=== PATIENT | female | born 1985 | race Caucasian/White ===

== ENCOUNTER 2024-04-06 07:01 | Observation (INO) ==
[2024-04-06 07:15] VITALS: BMI 21.9
--- NOTE | 2024-04-06 07:21 | DR.NAUSEAF ---
HPI Time Seen Time Seen by Provider: 04/06/24 07:20 Primary Care Physician Primary Care Physician: NFD Complaints Chief Complaint Doctors Comments: Patient states that she began to have nausea and vomiting 2 days ago. Patient states that she has not had multiple episodes of emesis like this since she was with her 2 children. Patient also c/o generalized abdl pain. Patient has a h/o seizure disorder. She stopped taking her seizure medication 4 yrs ago and has not had any seizures in 2 yrs. Patient denies: fever, hematemesis, hematochezia, headache, dizziness. Chief Complaint:: Patient states that she has been throwing up since yesterday afternoon. She also states that her right arm is tingling. She states that she has seizures, so she is concerned that the throwing up may lead to another one. COVID-19 Coronavirus risk:travel/contact w/high risk person: No Has patient experienced Coronavirus symptoms: No Source History Provided: Patient Mode of Arrival Mode of Arrival: Wheelchair Timing Onset of Chief Complaint: 04/05/24 PMH PMH Past Medical History: Yes Past Medical History: Seizures Past Surgical History: Yes Surgical History: Family History History of Family Medical Conditions: Yes Family Medical History: Diabetes Mellitus, Cancer, [place], Coronary Artery Disease and Hypertension Social History Does patient currently use any type of tobacco product: Yes Have you used tobacco products in the last 12 months: Yes Type of Tobacco Use: Cigarettes Does any household member use tobacco: Yes Alcohol Use: None Do you use any recreational Drugs:: No Travel Risk Coronavirus risk:travel/contact w/high risk person: No Has patient experienced Coronavirus symptoms: No Infectious screening In the last 2 months have you had wt loss of >10#?: NO Have you had fever, night sweats or hemotysis?: No Have you traveled outside the country in the last 6 months?: No Isolation: Standard ROS Review of Systems Constitutional: No Symptoms Reported Eyes: No Symptoms Reported ENTM: No Symptoms Reported Respiratoy: No Symptoms Reported Cardiovascular: No Symptoms Reported Gastrointestinal/Abdominal: Abdominal Pain (generalized), Nausea, Vomiting and Food Intolerance; negative Diarrhea Genitourinary: No Symptoms Reported Neurological: No Symptoms Reported Musculoskeletal: No Symptoms Reported Integumentary: No Symptoms Reported Hematologic/Lymphatic: No Symptoms Reported Endocrine: No Symptoms Reported Psychiatric: No Symptoms Reported All Other Systems: Reviewed and Negative PE Vital Signs Vitals: Vital Signs Temperature 97.7 F Pulse Rate 65 Pulse Rate 101 Respiratory Rate 26 Respiratory Rate 18 Blood Pressure 110/70 Blood Pressure 104/62 Blood Pressure 116/66 O2 Sat by Pulse Oximetry 99 General Limitations: No Limitations General Appearance: Alert and In No Apparent Distress Head Head Exam: Normal Inspection Eyes Eye exam: Normal Appearance ENT ENT Exam: Normal Exam Neck Neck Exam: Normal Inspection Chest Chest Inspection: Normal Inspection Respiratory Respiratory Exam: Normal Lung Sounds Bilat Respiratory Exam: Bilateral: Clear to Auscultation Cardiovascular Cardiovascular Exam: Regular Rate and Normal Rhythm Abdominal Exam Abdominal Exam: Normal Bowel Sounds, Soft and Tenderness Abdominal Tenderness: Diffuse Rectal Rectal Exam: Deferred External Exam: Female: Deferred : Speculum Exam (Female): Deferred : Bimanual Exam (female): Deferred Extremities Extremities Exam: Normal Inspection Back Back Exam: Normal Inspection Neurologic Neurological Exam: Alert and Oriented X3 Psychiatric Psychiatric Exam: Normal Affect and Normal Mood Skin Skin Exam: Warm, Dry, Intact and Normal Color MDM Differential Diagnosis Differential Diagnosis: Considerations may Include:: Cholecystitis, Gastritis, Gastroenteritis, Inflammatory BD and Pancreatitis COURSE Treatment Treatment: Patient was brought to an exam room and iv access was initiated. Labs /tests have been ordered. Patient will be given: NS bolus 1L bolus iv,pepcid , reglan 10mg iv, Keppra 1500mg iv loading dose.Abd/pelvis CT w/ contrast has been ordered. Signed out to Dr Grayson for further evaluation and disposition. Patient's abd/pelvis Ct revealed cholelithiasis.She was d/c with hydrocodone for abdl pain and keppra. ROR Labs Reviewed 04/07/24 04:30 04/07/24 04:30 Laboratory: WBC 12.0 X10^3/uL (3.6-10.0) H 04/06/24 07:53 RBC 4.37 X10^6/uL (3.5-5.4) 04/06/24 07:53 Hgb 13.2 g/dL (12.0-16.0) 04/06/24 07:53 Hct 39.9 % (36.0-47.0) 04/06/24 07:53 MCV 91.4 fL (80.0-100.0) 04/06/24 07:53 MCH 30.3 pg (27.0-34.0) 04/06/24 07:53 MCHC 33.1 g/dL (33.0-35.0) 04/06/24 07:53 RDW 14.4 % (11.6-16.5) 04/06/24 07:53 Plt Count 247 X10^3/uL (150.0-450.0) 04/06/24 07:53 MPV 9.4 fL (7.4-11.0) 04/06/24 07:53 Neut % (Auto) 76.4 % (42.0-75.0) H 04/06/24 07:53 Lymph % (Auto) 14.3 % (21.0-51.0) L 04/06/24 07:53 [place] % (Auto) 8.3 % (0.0-13.0) 04/06/24 07:53 Eos % (Auto) 0.5 % (0.9-2.9) L 04/06/24 07:53 Baso % (Auto) 0.5 % (0.2-1.0) 04/06/24 07:53 Neut # (Auto) 9.2 x10^3/uL (2.2-4.8) H 04/06/24 07:53 Lymph # (Auto) 1.7 X10^3/uL (1.3-2.9) 04/06/24 07:53 [place] # (Auto) 1.0 x10^3/uL (0.3-0.8) H 04/06/24 07:53 Eos # (Auto) 0.1 x10^3/uL (0.0-0.2) 04/06/24 07:53 Baso # (Auto) 0.1 X10^3/uL (0.0-0.1) 04/06/24 07:53 Absolute Nucleated RBC 0.0 /100WBC 04/06/24 07:53 Sodium 140 mmol/L (136-145) 04/06/24 07:53 Corrected Sodium TNP 04/06/24 07:53 Potassium 3.3 mmol/L (3.5-5.1) L 04/06/24 07:53 Chloride 98 mmol/L (98-107) 04/06/24 07:53 Carbon Dioxide 22.0 mmol/L (21-32) 04/06/24 07:53 BUN 27 mg/dL (7-18) H 04/06/24 07:53 Creatinine 0.71 mg/dL (0.55-1.02) 04/06/24 07:53 Est GFR (MDRD) Af Amer > 60 (>60) 04/06/24 07:53 Est GFR (MDRD) Non-Af > 60 (>60) 04/06/24 07:53 Glucose 67 mg/dL (65-99) 04/06/24 07:53 Calcium 9.6 mg/dL (8.5-10.1) 04/06/24 07:53 Corrected Calcium TNP 04/06/24 07:53 Total Bilirubin 1.00 mg/dL (0.2-1.0) 04/06/24 07:53 AST 15 Units/L (15-37) 04/06/24 07:53 ALT 19 Units/L (12-78) 04/06/24 07:53 Alkaline Phosphatase 94 Units/L (46-116) 04/06/24 07:53 Total Protein 8.2 g/dL (6.4-8.2) 04/06/24 07:53 Albumin 4.6 g/dL (3.4-5.0) 04/06/24 07:53 Globulin 3.6 g/dL (2.5-4.5) 04/06/24 07:53 Albumin/Globulin Ratio 1.3 Ratio (1.1-2.1) 04/06/24 07:53 Amylase 35 Units/L (25-115) 04/06/24 07:53 Lipase 16 Units/L (16-77) 04/06/24 07:53 HCG, Qual Negative <10 mIU/mL 04/06/24 07:50 Specimen Type Clean catch urine 04/06/24 08:50 Urine Color Yellow (YELLOW) 04/06/24 08:50 Urine Appearance Slightly hazy (CLEAR) 04/06/24 08:50 Urine pH 6.0 (5.0 - 8.0) 04/06/24 08:50 Ur Specific [place] 1.025 (1.000-1.030) 04/06/24 08:50 Urine Protein 2+ (NEGATIVE) 04/06/24 08:50 Urine Glucose (UA) Negative (NEGATIVE) 04/06/24 08:50 Urine Ketones 4+ (NEGATIVE) 04/06/24 08:50 Urine Blood Negative (NEGATIVE) 04/06/24 08:50 Urine Nitrite Negative (NEGATIVE) 04/06/24 08:50 Urine Bilirubin Negative (NEGATIVE) 04/06/24 08:50 Urine Urobilinogen Normal (NORMAL) 04/06/24 08:50 Ur Leukocyte Esterase Negative (NEGATIVE) 04/06/24 08:50 Urine RBC 0-2 /HPF (0-3) 04/06/24 08:50 Urine WBC 3-5 /HPF (0-5) 04/06/24 08:50 Ur Squamous Epith Cells Moderate /HPF (NEGATIVE) 04/06/24 08:50 Urine Bacteria Trace /HPF (NEGATIVE) 04/06/24 08:50 Hyaline Casts Few /LPF (NEGATIVE) 04/06/24 08:50 Urine Mucus Few /HPF (NEGATIVE) 04/06/24 08:50 Ur Culture Indicated? No/not indicated 04/06/24 08:50 Levetiracetam < 2 ug/mL (10-40) L 04/06/24 07:50 EKG Compared to prior EKG Dated: 04/06/24 Rate: 47 [place]: Normal Rhythm: SB Opioid Opioid Risk Tool Age (Rober box if 16-45): Yes History of Preadolescent Sexual Abuse: No Total: 1 Total Score Risk Category: Low Risk Copyright: Abad HICKS predicting aberrant behaviors Discharge Plan Diagnosis Discharge Problem: Seizure disorder, Abdominal pain, Cholelithiasis, Nausea & vomiting Discharge Plan Patient Disposition: ADMITTED INPATIENT Condition: Stable Prescription drug monitoring program results: PDMP reviewed and no concerns i dentified Orders to Discharge Patient Discharge Orders: Discharge (Routine); Ordered 04/08/24 Ordered By: Homero Galvan
[2024-04-06] MEDS: REGLAN INJ 10 MG VIAL IVP ONE (07:44)
[2024-04-06] MEDS: PEPCID 20 MG VIAL IVP ONE (07:44)
[2024-04-06] MEDS: KEPPRA INJ 1,500 MG in NS 100 ML IV 100 ML IV SCH (07:45)
[2024-04-06] MEDS: NS 1,000 ML IV 1,000 ML IV ONE (07:45)
--- NOTE | 2024-04-06 08:00 | EKG ---
Test Reason : weakness Blood Pressure : */* mmHG Vent. Rate : 47 BPM Atrial Rate : 47 BPM P-R Int : 126 ms QRS Dur : 92 ms QT Int : 500 ms P-R-T Axes : 77 73 64 degrees QTc Int : 442 ms Sinus bradycardia Otherwise normal ECG No previous ECGs available Confirmed by London Coates MD ([id number]) on 04/06/2024 11:43:29 AM Referred By: Confirmed By: London Coates MD
[2024-04-06 08:02] LABS: BASOPHILS # (AUTO) 0.1 X10^3/uL (0.0-0.1); BASOPHILS % (AUTO) 0.5 % (0.2-1.0); EOSINOPHILS # (AUTO) 0.1 x10^3/uL (0.0-0.2); EOSINOPHILS % (AUTO) 0.5 % (0.9-2.9); HEMATOCRIT 39.9 % (36.0-47.0); HEMOGLOBIN 13.2 g/dL (12.0-16.0); LYMPHOCYTES # (AUTO) 1.7 X10^3/uL (1.3-2.9); LYMPHOCYTES % (AUTO) 14.3 % (21.0-51.0); MEAN CORPUSCULAR HEMOGLOBIN 30.3 pg (27.0-34.0); MEAN CORPUSCULAR HGB CONC 33.1 g/dL (33.0-35.0); MEAN CORPUSCULAR VOLUME 91.4 fL (80.0-100.0); MEAN PLATELET VOLUME 9.4 fL (7.4-11.0); MONOCYTES % (AUTO) 8.3 % (0.0-13.0); NEUTROPHILS # (AUTO) 9.2 x10^3/uL (2.2-4.8); NEUTROPHILS % (AUTO) 76.4 % (42.0-75.0); PLATELET COUNT 247 X10^3/uL (150.0-450.0); RED BLOOD COUNT 4.37 X10^6/uL (3.5-5.4); RED CELL DISTRIBUTION WIDTH 14.4 % (11.6-16.5)
[2024-04-06 08:18] LABS: SERUM PREGNANCY TEST, QUAL NEGATIVE <10 mIU/mL
[2024-04-06 08:21] LABS: ALANINE AMINOTRANSFERASE 19 Units/L (12-78); ALBUMIN 4.6 g/dL (3.4-5.0); ALKALINE PHOSPHATASE 94 Units/L (46-116); AMYLASE 35 Units/L (25-115); ASPARTATE AMINO TRANSFERASE 15 Units/L (15-37); BLOOD UREA NITROGEN 27 mg/dL (7-18); CALCIUM 9.6 mg/dL (8.5-10.1); CHLORIDE 98 mmol/L (98-107); CREATININE 0.71 mg/dL (0.55-1.02); GLUCOSE 67 mg/dL (65-99); LIPASE 16 Units/L (16-77); POTASSIUM 3.3 mmol/L (3.5-5.1); SODIUM 140 mmol/L (136-145); TOTAL PROTEIN 8.2 g/dL (6.4-8.2); eGFR NON BLACK RACES > 60 (>60)
[2024-04-06 09:04] LABS: BILIRUBIN,URINE NEGATIVE (NEGATIVE); BLOOD/HEMOGLOBIN,URINE NEGATIVE (NEGATIVE); GLUCOSE, URINE NEGATIVE (NEGATIVE); KETONES,URINE 4+ (NEGATIVE); LEUKOCYTE ESTERASE ,URINE NEGATIVE (NEGATIVE); NITRITES,URINE NEGATIVE (NEGATIVE); PROTEIN,URINE 2+ (NEGATIVE); UROBILINOGEN,URINE NORMAL (NORMAL)
[2024-04-06 09:20] LABS: APPEARANCE,URINE SLIGHTLY HAZY (CLEAR); COLOR,URINE YELLOW (YELLOW)
[2024-04-06 09:21] LABS: BACTERIA,URINE TRACE /HPF (NEGATIVE); HYALINE CASTS, URINE FEW /LPF (NEGATIVE); RBC,URINE 0-2 /HPF (0-3); SQUAMOUS EPITHELIAL CELL,UR MODERATE /HPF (NEGATIVE)
--- NOTE | 2024-04-06 09:29 | CT ---
EXAM:ABDCMEN/PELVIS WITH CONHISTORY:Intractable vomitingTECHNIQUE:Axial postcontrast images with coronal and sagittal reformats. Dose reduction procedures were used with mA/kv adjusted for body size. Resolution is limited due to respiratory motion.COMPARISON:05/15/2019 reportFINDINGS:Lung bases are clear. Liver, spleen, adrenal glands, and pancreas are within normal limits. Cholelithiasis is present. The stone appears to be in the neck of the gallbladder. No definite findings to suggest cholecystitis at this time however if cholecystitis is a strong clinical consideration nuclear medicine biliary scan may be of further diagnostic value in assessing cystic duct patency. Kidneys are unobstructed and without masses or stones. No ureteral calculi are identified. Appendix is not identified with absolute certainty. There are no secondary signs of appendicitis identified. Abdominal aorta is normal. No enlarged intraperitoneal or retroperitoneal lymphadenopathy is identified. There are no definite findings suggestive of enteritis, colitis, or diverticulitis. No pelvic masses, pelvic fluid, or pelvic lymphadenopathy is identified. No bladder abnormality identified. No lytic or blastic skeletal lesions of significance are identified.IMPRESSION:Cholelithiasis without definite evidence for cholecystitis however if cholecystitis is a clinical consideration, nuclear medicine biliary scan would be of further diagnostic value in assessing cystic duct patency.No other significant findings identified to the limitations noted above.THIS IS AN ELECTRONICALLY VERIFIED FINAL REPORT04/06/2024 9:26 AM - Electronically signed by Andres Raymundo MD
[2024-04-06] MEDS: NS + KCL 20 MEQ/L 1,000 ML IV ONE ×2 (10:07→12:14)
--- NOTE | 2024-04-06 11:46 | DR.NAUSEAF ---
HPI Time Seen Time Seen by Provider: 04/06/24 07:20 Primary Care Physician Primary Care Physician: ANITAD Complaints Chief Complaint:: Patient states that she has been throwing up since yesterday afternoon. She also states that her right arm is tingling. She states that she has seizures, so she is concerned that the throwing up may lead to another one. COVID-19 Coronavirus risk:travel/contact w/high risk person: No Has patient experienced Coronavirus symptoms: No Source History Provided: Patient Mode of Arrival Mode of Arrival: Wheelchair Timing Onset of Chief Complaint: 04/05/24 PMH PMH Past Medical History: Yes Past Medical History: Seizures Past Surgical History: Yes Surgical History: Family History History of Family Medical Conditions: Yes Family Medical History: Diabetes Mellitus, Cancer, [place], Coronary Artery Disease and Hypertension Social History Does patient currently use any type of tobacco product: Yes Have you used tobacco products in the last 12 months: Yes Type of Tobacco Use: Cigarettes Does any household member use tobacco: Yes Alcohol Use: None Do you use any recreational Drugs:: No Travel Risk Coronavirus risk:travel/contact w/high risk person: No Has patient experienced Coronavirus symptoms: No Infectious screening In the last 2 months have you had wt loss of >10#?: NO Have you had fever, night sweats or hemotysis?: No Have you traveled outside the country in the last 6 months?: No Isolation: Standard PE Vital Signs Vitals: Vital Signs Temperature 97.7 F Pulse Rate 51 Pulse Rate 50 Pulse Rate 49 Pulse Rate 85 Pulse Rate 85 Pulse Rate 52 Pulse Rate 54 Pulse Rate 55 Pulse Rate 57 Pulse Rate 74 Pulse Rate 54 Pulse Rate 51 Pulse Rate 49 Pulse Rate 47 Pulse Rate 44 Pulse Rate 49 Pulse Rate 51 Pulse Rate 43 Pulse Rate 65 Pulse Rate 101 Respiratory Rate 49 Respiratory Rate 46 Respiratory Rate 45 Respiratory Rate 38 Respiratory Rate 23 Respiratory Rate 25 Respiratory Rate 25 Respiratory Rate 24 Respiratory Rate 21 Respiratory Rate 31 Respiratory Rate 20 Respiratory Rate 25 Respiratory Rate 45 Respiratory Rate 42 Respiratory Rate 41 Respiratory Rate 45 Respiratory Rate 33 Respiratory Rate 30 Respiratory Rate 26 Respiratory Rate 18 Blood Pressure 110/57 Blood Pressure 89/52 Blood Pressure 81/45 Blood Pressure 79/43 Blood Pressure 109/61 Blood Pressure 110/59 Blood Pressure 101/58 Blood Pressure 106/56 Blood Pressure 110/70 Blood Pressure 104/62 Blood Pressure 116/66 O2 Sat by Pulse Oximetry 100 O2 Sat by Pulse Oximetry 100 O2 Sat by Pulse Oximetry 100 O2 Sat by Pulse Oximetry 100 O2 Sat by Pulse Oximetry 99 O2 Sat by Pulse Oximetry 98 O2 Sat by Pulse Oximetry 99 ROR Labs Reviewed 04/06/24 07:53 04/06/24 07:53 Laboratory: WBC 12.0 X10^3/uL (3.6-10.0) H 04/06/24 07:53 RBC 4.37 X10^6/uL (3.5-5.4) 04/06/24 07:53 Hgb 13.2 g/dL (12.0-16.0) 04/06/24 07:53 Hct 39.9 % (36.0-47.0) 04/06/24 07:53 MCV 91.4 fL (80.0-100.0) 04/06/24 07:53 MCH 30.3 pg (27.0-34.0) 04/06/24 07:53 MCHC 33.1 g/dL (33.0-35.0) 04/06/24 07:53 RDW 14.4 % (11.6-16.5) 04/06/24 07:53 Plt Count 247 X10^3/uL (150.0-450.0) 04/06/24 07:53 MPV 9.4 fL (7.4-11.0) 04/06/24 07:53 Neut % (Auto) 76.4 % (42.0-75.0) H 04/06/24 07:53 Lymph % (Auto) 14.3 % (21.0-51.0) L 04/06/24 07:53 [place] % (Auto) 8.3 % (0.0-13.0) 04/06/24 07:53 Eos % (Auto) 0.5 % (0.9-2.9) L 04/06/24 07:53 Baso % (Auto) 0.5 % (0.2-1.0) 04/06/24 07:53 Neut # (Auto) 9.2 x10^3/uL (2.2-4.8) H 04/06/24 07:53 Lymph # (Auto) 1.7 X10^3/uL (1.3-2.9) 04/06/24 07:53 [place] # (Auto) 1.0 x10^3/uL (0.3-0.8) H 04/06/24 07:53 Eos # (Auto) 0.1 x10^3/uL (0.0-0.2) 04/06/24 07:53 Baso # (Auto) 0.1 X10^3/uL (0.0-0.1) 04/06/24 07:53 Absolute Nucleated RBC 0.0 /100WBC 04/06/24 07:53 Sodium 140 mmol/L (136-145) 04/06/24 07:53 Corrected Sodium TNP 04/06/24 07:53 Potassium 3.3 mmol/L (3.5-5.1) L 04/06/24 07:53 Chloride 98 mmol/L (98-107) 04/06/24 07:53 Carbon Dioxide 22.0 mmol/L (21-32) 04/06/24 07:53 BUN 27 mg/dL (7-18) H 04/06/24 07:53 Creatinine 0.71 mg/dL (0.55-1.02) 04/06/24 07:53 Est GFR (MDRD) Af Amer > 60 (>60) 04/06/24 07:53 Est GFR (MDRD) Non-Af > 60 (>60) 04/06/24 07:53 Glucose 67 mg/dL (65-99) 04/06/24 07:53 Calcium 9.6 mg/dL (8.5-10.1) 04/06/24 07:53 Corrected Calcium TNP 04/06/24 07:53 Total Bilirubin 1.00 mg/dL (0.2-1.0) 04/06/24 07:53 AST 15 Units/L (15-37) 04/06/24 07:53 ALT 19 Units/L (12-78) 04/06/24 07:53 Alkaline Phosphatase 94 Units/L (46-116) 04/06/24 07:53 Total Protein 8.2 g/dL (6.4-8.2) 04/06/24 07:53 Albumin 4.6 g/dL (3.4-5.0) 04/06/24 07:53 Globulin 3.6 g/dL (2.5-4.5) 04/06/24 07:53 Albumin/Globulin Ratio 1.3 Ratio (1.1-2.1) 04/06/24 07:53 Amylase 35 Units/L (25-115) 04/06/24 07:53 Lipase 16 Units/L (16-77) 04/06/24 07:53 HCG, Qual Negative <10 mIU/mL 04/06/24 07:50 Specimen Type Clean catch urine 04/06/24 08:50 Urine Color Yellow (YELLOW) 04/06/24 08:50 Urine Appearance Slightly hazy (CLEAR) 04/06/24 08:50 Urine pH 6.0 (5.0 - 8.0) 04/06/24 08:50 Ur Specific [place] 1.025 (1.000-1.030) 04/06/24 08:50 Urine Protein 2+ (NEGATIVE) 04/06/24 08:50 Urine Glucose (UA) Negative (NEGATIVE) 04/06/24 08:50 Urine Ketones 4+ (NEGATIVE) 04/06/24 08:50 Urine Blood Negative (NEGATIVE) 04/06/24 08:50 Urine Nitrite Negative (NEGATIVE) 04/06/24 08:50 Urine Bilirubin Negative (NEGATIVE) 04/06/24 08:50 Urine Urobilinogen Normal (NORMAL) 04/06/24 08:50 Ur Leukocyte Esterase Negative (NEGATIVE) 04/06/24 08:50 Urine RBC 0-2 /HPF (0-3) 04/06/24 08:50 Urine WBC 3-5 /HPF (0-5) 04/06/24 08:50 Ur Squamous Epith Cells Moderate /HPF (NEGATIVE) 04/06/24 08:50 Urine Bacteria Trace /HPF (NEGATIVE) 04/06/24 08:50 Hyaline Casts Few /LPF (NEGATIVE) 04/06/24 08:50 Urine Mucus Few /HPF (NEGATIVE) 04/06/24 08:50 Ur Culture Indicated? No/not indicated 04/06/24 08:50 Opioid Opioid Risk Tool Age (Rober box if 16-45): Yes History of Preadolescent Sexual Abuse: No Total: 1 Total Score Risk Category: Low Risk Copyright: Abad HICKS predicting aberrant behaviors Discharge Plan Diagnosis Discharge Problem: Seizure disorder Discharge Plan Patient Disposition: 01 HOME, SELF-CARE Condition: Stable Orders to Discharge Patient Discharge Orders: Transfer (Routine); Ordered 04/06/24 Ordered By: BRYSON PORTER
[2024-04-06] MEDS: OMNIPAQUE 350 mg/mL 100 mL BTL 100 ML ONE (12:13)
[2024-04-06] MEDS: KEPPRA INJ 500 MG in NS 100 ML IV 100 ML IV SCH (12:16)
[2024-04-06] MEDS ORDERED: NS 250 ML IV 250 ML IV ONE (12:32)
[2024-04-06] MEDS: LR 1,000 ML IV 1,000 ML IV SCH (12:35)
[2024-04-06] MEDS: NS 250 ML IV 25 ML IV PRN (12:37)
[2024-04-06] MEDS: CIPRO IV 400 MG PREMIX* 400 MG/200 ML IV.SOLN. IV SCH (12:40)
[2024-04-06] MEDS ORDERED: CONSULT PHARMACY - POTASSIUM & MAGNESIUM XX SCH (20:00)
[2024-04-06] MEDS: K-RIDER 10 MEQ/100 ML WATER 10 MEQ/100 ML BAG IV SCH (20:17)
[2024-04-06] MEDS: K-DUR TAB 20 MEQ PO ONE (20:44)
--- NOTE | 2024-04-07 00:02 | DR.H&P ---
H&P History & Physical for Day of: H&P Date: 04/06/24 Chief Complaint Chief Complaint: Nausea and vomiting History of Present Illness History of Present Illness: 38 year old female who presented with approximately 24 hours of nausea and vomiting. History of seizures although she's been off medication for over a year it has not had a seizure in over 3 years. Evaluated in the emergency room and CT scan showed cholelithiasis but no obvious cholecystitis. Patient was admitted and placed an IV antibiotics and IV hydration. When I saw the patient for physical exam she denied any type of right upper quadrant pain or tenderness. HCG is negative . CT noted gallstones impacted in the neck of the gallbladder. Past Medical History Past Medical History: Seizures Past Surgical History Surgical History: and Other Family History Family Medical History: Diabetes Mellitus and Hypertension Social History Does patient currently use any type of tobacco product: Yes Have you used tobacco products in the last 12 months: Yes Type of Tobacco Use: Cigarettes How many years tobacco product used: 20 Does any household member use tobacco: Yes Alcohol Use: None Drug Use: None Medications Home Medications: none Allergies Allergies Allergy/AdvReac Type Severity Reaction Status Date / Time phenytoin [From Dilantin] Allergy Verified 04/06/24 07:23 Labs 04/06/24 07:53 04/06/24 07:53 Labs: Laboratory WBC 12.0 X10^3/uL (3.6-10.0) H 04/06/24 07:53 RBC 4.37 X10^6/uL (3.5-5.4) 04/06/24 07:53 Hgb 13.2 g/dL (12.0-16.0) 04/06/24 07:53 Hct 39.9 % (36.0-47.0) 04/06/24 07:53 MCV 91.4 fL (80.0-100.0) 04/06/24 07:53 MCH 30.3 pg (27.0-34.0) 04/06/24 07:53 MCHC 33.1 g/dL (33.0-35.0) 04/06/24 07:53 RDW 14.4 % (11.6-16.5) 04/06/24 07:53 Plt Count 247 X10^3/uL (150.0-450.0) 04/06/24 07:53 MPV 9.4 fL (7.4-11.0) 04/06/24 07:53 Neut % (Auto) 76.4 % (42.0-75.0) H 04/06/24 07:53 Lymph % (Auto) 14.3 % (21.0-51.0) L 04/06/24 07:53 [place] % (Auto) 8.3 % (0.0-13.0) 04/06/24 07:53 Eos % (Auto) 0.5 % (0.9-2.9) L 04/06/24 07:53 Baso % (Auto) 0.5 % (0.2-1.0) 04/06/24 07:53 Neut # (Auto) 9.2 x10^3/uL (2.2-4.8) H 04/06/24 07:53 Lymph # (Auto) 1.7 X10^3/uL (1.3-2.9) 04/06/24 07:53 [place] # (Auto) 1.0 x10^3/uL (0.3-0.8) H 04/06/24 07:53 Eos # (Auto) 0.1 x10^3/uL (0.0-0.2) 04/06/24 07:53 Baso # (Auto) 0.1 X10^3/uL (0.0-0.1) 04/06/24 07:53 Absolute Nucleated RBC 0.0 /100WBC 04/06/24 07:53 Sodium 140 mmol/L (136-145) 04/06/24 07:53 Corrected Sodium TNP 04/06/24 07:53 Potassium 3.3 mmol/L (3.5-5.1) L 04/06/24 07:53 Chloride 98 mmol/L (98-107) 04/06/24 07:53 Carbon Dioxide 22.0 mmol/L (21-32) 04/06/24 07:53 BUN 27 mg/dL (7-18) H 04/06/24 07:53 Creatinine 0.71 mg/dL (0.55-1.02) 04/06/24 07:53 Est GFR (MDRD) Af Amer > 60 (>60) 04/06/24 07:53 Est GFR (MDRD) Non-Af > 60 (>60) 04/06/24 07:53 Glucose 67 mg/dL (65-99) 04/06/24 07:53 Calcium 9.6 mg/dL (8.5-10.1) 04/06/24 07:53 Corrected Calcium TNP 04/06/24 07:53 Total Bilirubin 1.00 mg/dL (0.2-1.0) 04/06/24 07:53 AST 15 Units/L (15-37) 04/06/24 07:53 ALT 19 Units/L (12-78) 04/06/24 07:53 Alkaline Phosphatase 94 Units/L (46-116) 04/06/24 07:53 Total Protein 8.2 g/dL (6.4-8.2) 04/06/24 07:53 Albumin 4.6 g/dL (3.4-5.0) 04/06/24 07:53 Globulin 3.6 g/dL (2.5-4.5) 04/06/24 07:53 Albumin/Globulin Ratio 1.3 Ratio (1.1-2.1) 04/06/24 07:53 Amylase 35 Units/L (25-115) 04/06/24 07:53 Lipase 16 Units/L (16-77) 04/06/24 07:53 HCG, Qual Negative <10 mIU/mL 04/06/24 07:50 Specimen Type Clean catch urine 04/06/24 08:50 Urine Color Yellow (YELLOW) 04/06/24 08:50 Urine Appearance Slightly hazy (CLEAR) 04/06/24 08:50 Urine pH 6.0 (5.0 - 8.0) 04/06/24 08:50 Ur Specific [place] 1.025 (1.000-1.030) 04/06/24 08:50 Urine Protein 2+ (NEGATIVE) 04/06/24 08:50 Urine Glucose (UA) Negative (NEGATIVE) 04/06/24 08:50 Urine Ketones 4+ (NEGATIVE) 04/06/24 08:50 Urine Blood Negative (NEGATIVE) 04/06/24 08:50 Urine Nitrite Negative (NEGATIVE) 04/06/24 08:50 Urine Bilirubin Negative (NEGATIVE) 04/06/24 08:50 Urine Urobilinogen Normal (NORMAL) 04/06/24 08:50 Ur Leukocyte Esterase Negative (NEGATIVE) 04/06/24 08:50 Urine RBC 0-2 /HPF (0-3) 04/06/24 08:50 Urine WBC 3-5 /HPF (0-5) 04/06/24 08:50 Ur Squamous Epith Cells Moderate /HPF (NEGATIVE) 04/06/24 08:50 Urine Bacteria Trace /HPF (NEGATIVE) 04/06/24 08:50 Hyaline Casts Few /LPF (NEGATIVE) 04/06/24 08:50 Urine Mucus Few /HPF (NEGATIVE) 04/06/24 08:50 Ur Culture Indicated? No/not indicated 04/06/24 08:50 Review of Systems Constitutional: See HPI Eyes: No Symptoms Reported ENT: No Symptoms Reported Respiratory: No Symptoms Reported Cardiovascular: No Symptoms Reported Gastrointestinal: No Symptoms Reported Genitourinary: No Symptoms Reported Musculoskeletal: No Symptoms Reported Skin: No Symptoms Reported Neurological: No Symptoms Reported Physical Exam Vital Signs: Vital Signs Temperature 97.8 F Temperature 98.3 F Pulse Rate [Bilateral Brachial 51 ] Pulse Rate [Bilateral Brachial 52 ] Respiratory Rate 20 Respiratory Rate 20 Blood Pressure [Left Arm] 84/54 Blood Pressure [Left Arm] 90/55 O2 Sat by Pulse Oximetry 100 O2 Sat by Pulse Oximetry 100 Oriented: Normal, Time, Person and Place Eyes: Normal Ear: Normal Nose: Normal Throat: Normal Respiratory: Clear Throughout Cardiovascular: Normal : Normal Auscultation: Bowel Sounds: Normal Palpation: Normal Tenderness: Normal Skin: Normal Musculoskeletal: Normal Psychiatric: Normal Mood Description: Calm Affect: Normal Speech Pattern: Clear and Appropriate Assessment/Plan (1) Nausea & vomiting: Status: Acute Plan: hydrate, treat symptoms (2) Cholelithiasis: Status: Acute Plan: at this time of intial presentation known to have cholelithiasis but not tender RUQ. Will observe. repeat labs Review H&P Reviewed: Yes Patient was examined?: Yes
[2024-04-07] MEDS: HIBICLENS WASH EXT ONE (03:00)
[2024-04-07 05:34] LABS: BASOPHILS # (AUTO) 0.1 X10^3/uL (0.0-0.1); BASOPHILS % (AUTO) 0.8 % (0.2-1.0); EOSINOPHILS # (AUTO) 0.1 x10^3/uL (0.0-0.2); EOSINOPHILS % (AUTO) 1.3 % (0.9-2.9); HEMATOCRIT 30.4 % (36.0-47.0); LYMPHOCYTES # (AUTO) 2.3 X10^3/uL (1.3-2.9); LYMPHOCYTES % (AUTO) 30.6 % (21.0-51.0); MEAN CORPUSCULAR HEMOGLOBIN 29.8 pg (27.0-34.0); MEAN CORPUSCULAR HGB CONC 32.4 g/dL (33.0-35.0); MEAN CORPUSCULAR VOLUME 91.8 fL (80.0-100.0); MEAN PLATELET VOLUME 9.8 fL (7.4-11.0); MONOCYTES # (AUTO) 0.7 x10^3/uL (0.3-0.8); MONOCYTES % (AUTO) 9.3 % (0.0-13.0); NEUTROPHILS # (AUTO) 4.4 x10^3/uL (2.2-4.8); PLATELET COUNT 205 X10^3/uL (150.0-450.0); RED BLOOD COUNT 3.31 X10^6/uL (3.5-5.4); RED CELL DISTRIBUTION WIDTH 14.4 % (11.6-16.5); WHITE BLOOD COUNT 7.6 X10^3/uL (3.6-10.0)
[2024-04-07 05:46] LABS: HEMOGLOBIN 9.9 g/dL (12.0-16.0)
[2024-04-07 05:54] LABS: ALANINE AMINOTRANSFERASE 13 Units/L (12-78); ALBUMIN 3.1 g/dL (3.4-5.0); ALKALINE PHOSPHATASE 64 Units/L (46-116); ASPARTATE AMINO TRANSFERASE 12 Units/L (15-37); BLOOD UREA NITROGEN 9 mg/dL (7-18); CALCIUM 8.3 mg/dL (8.5-10.1); CARBON DIOXIDE 20.9 mmol/L (21-32); CHLORIDE 107 mmol/L (98-107); CREATININE 0.56 mg/dL (0.55-1.02); GLUCOSE 58 mg/dL (65-99); POTASSIUM 4.1 mmol/L (3.5-5.1); SODIUM 140 mmol/L (136-145); eGFR NON BLACK RACES > 60 (>60)
[2024-04-07] MEDS: NS 100 ML IV 100 ML ONE (13:51)
[2024-04-07] MEDS: LR 1,000 ML IV 1,000 ML IV ONE (13:51)
[2024-04-07] MEDS: ANCEF VIAL 1 GRAM ONE (13:51)
[2024-04-07] MEDS: ZOFRAN INJ 4 MG VIAL ONE (14:04)
[2024-04-07] MEDS: VERSED ONE (14:04)
[2024-04-07] MEDS: ZEMURON 100 MG VIAL ONE (14:04)
[2024-04-07] MEDS: PEPCID 20 MG VIAL ONE (14:04)
[2024-04-07] MEDS: REGLAN INJ 10 MG VIAL ONE (14:04)
[2024-04-07] MEDS: FENTANYL VIAL INJ 100 mcg ONE (14:04)
[2024-04-07] MEDS: BRIDION ONE (14:04)
[2024-04-07] MEDS: OFIRMEV IV 1000 MG VIAL 1,000 MG/100 ML VIAL IV ONE (14:04)
[2024-04-07] MEDS: DIPRIVAN VIAL 20 ML ONE (14:04)
[2024-04-07] MEDS: TORADOL 30 MG VIAL ONE (14:04)
[2024-04-07] MEDS: DILAUDID INJ ONE (14:33)
[2024-04-07] MEDS: MARCAINE/EPINEPHRINE ONE ×2 (14:49→14:52)
--- NOTE | 2024-04-07 15:01 | OR.IMMED ---
IMMEDIATE POST-OP NOTE Immediate Post-Op Note Date of surgery/procedure: 04/07/24 Pre-Op Diagnosis: Symptomatic cholrlithiasis Post-Op Diagnosis: same Procedure: laparoscopic cholecystectomy Description of Procedure: dictated Surgeon/Extruding Department Supervisor: Mandy Findings: gallbladder with cholelithiasis Estimated Blood Loss: minimal Complications: none Progress Notes: return to floor ,begin diet. dischare home soon
[2024-04-07] MEDS: DILAUDID INJ IVP PRN (15:02)
[2024-04-07] MEDS ORDERED: ZOFRAN INJ 4 MG VIAL IVP PRN (15:07)
[2024-04-07] MEDS ORDERED: BENADRYL INJ 50 MG VIAL IVP PRN (15:07)
[2024-04-07] MEDS ORDERED: REGLAN INJ 10 MG VIAL IVP PRN (15:07)
[2024-04-07] MEDS ORDERED: BARHEMSYS INJ IVP PRN (15:07)
[2024-04-07] MEDS ORDERED: XYLOCAINE 2 % (PLAIN) ONE (16:04)
[2024-04-07] MEDS ORDERED: SUPRANE ONE (16:04)
[2024-04-07] MEDS: ZOFRAN INJ 4 MG VIAL IVP PRN (17:40)
[2024-04-08 08:54] VITALS: BP 102/50; PULSE 56; RESP 20; TEMP 98.2; O2SAT 100
--- NOTE | 2024-04-08 09:51 | W.DIS.FURT ---
Summary of Discharge Discharge Summary of Date Date of Exam: 04/08/24 Admission Date Date of Admission: 04/06/24 Admission Diagnosis Patient Problems (Updated 04/06/24 @ 11:53 by Kelli Fischer) Seizure disorder (Acute) G40.909 Abdominal pain (Acute) R10.9 Cholelithiasis (Acute) K80.20 Nausea & vomiting (Acute) R11.2 Hospital Course: 38 year old female seen in the emergency room with nausea and vomiting and discovered to have symptomatic cholelithiasis . Patient underwent uncomplicated laparoscopic cystectomy yesterday .nausea and vomiting has resolved however appetite has not been great .She will be discharged today on usual home medications plus Percocet, 5 milligram tablets, 1 every 6 hours PRN pain. She will follow up with me in 1 week. I encourage ambulation and for her not to smoke cigarettes. Vital Signs: Vital Signs (72 hours) 04/06/24 07:05 04/06/24 07:20 04/06/24 07:30 Temperature 97.7 F Pulse Rate 101 H Pulse Rate [Bilateral Brachial] Respiratory Rate 18 Blood Pressure 116/66 104/62 110/70 Blood Pressure [Left Arm] O2 Sat by Pulse Oximetry 99 Oxygen Delivery Method Room Air 04/06/24 07:45 04/06/24 08:00 04/06/24 08:00 Temperature Pulse Rate 65 43 L Pulse Rate [Bilateral Brachial] Respiratory Rate 26 H 30 H Blood Pressure 106/56 Blood Pressure [Left Arm] O2 Sat by Pulse Oximetry 98 Oxygen Delivery Method 04/06/24 08:16 04/06/24 08:30 04/06/24 08:30 Temperature Pulse Rate 51 L 49 L Pulse Rate [Bilateral Brachial] Respiratory Rate 33 H 45 H Blood Pressure 101/58 Blood Pressure [Left Arm] O2 Sat by Pulse Oximetry 99 100 Oxygen Delivery Method 04/06/24 08:50 04/06/24 09:00 04/06/24 09:00 Temperature Pulse Rate 44 L 47 L Pulse Rate [Bilateral Brachial] Respiratory Rate 41 H 42 H Blood Pressure 110/59 Blood Pressure [Left Arm] O2 Sat by Pulse Oximetry 100 100 Oxygen Delivery Method 04/06/24 09:15 04/06/24 09:30 04/06/24 09:45 Temperature Pulse Rate 49 L 51 L 54 L Pulse Rate [Bilateral Brachial] Respiratory Rate 45 H 25 H 20 Blood Pressure Blood Pressure [Left Arm] O2 Sat by Pulse Oximetry 100 Oxygen Delivery Method 04/06/24 09:48 04/06/24 09:48 04/06/24 10:00 Temperature Pulse Rate 74 57 L Pulse Rate [Bilateral Brachial] Respiratory Rate 31 H 21 Blood Pressure 109/61 Blood Pressure [Left Arm] O2 Sat by Pulse Oximetry Oxygen Delivery Method 04/06/24 10:01 04/06/24 10:01 04/06/24 10:02 Temperature Pulse Rate 55 L 54 L Pulse Rate [Bilateral Brachial] Respiratory Rate 24 25 H Blood Pressure 79/43 Blood Pressure [Left Arm] O2 Sat by Pulse Oximetry Oxygen Delivery Method 04/06/24 10:02 04/06/24 10:15 04/06/24 10:30 Temperature Pulse Rate 52 L 85 Pulse Rate [Bilateral Brachial] Respiratory Rate 25 H 23 Blood Pressure 81/45 Blood Pressure [Left Arm] O2 Sat by Pulse Oximetry Oxygen Delivery Method 04/06/24 10:30 04/06/24 10:45 04/06/24 11:00 Temperature Pulse Rate 85 49 L Pulse Rate [Bilateral Brachial] Respiratory Rate 38 H 45 H Blood Pressure 89/52 Blood Pressure [Left Arm] O2 Sat by Pulse Oximetry Oxygen Delivery Method 04/06/24 11:01 04/06/24 11:01 04/06/24 11:15 Temperature Pulse Rate 50 L 51 L Pulse Rate [Bilateral Brachial] Respiratory Rate 46 H 49 H Blood Pressure 110/57 Blood Pressure [Left Arm] O2 Sat by Pulse Oximetry Oxygen Delivery Method 04/06/24 11:30 04/06/24 11:30 04/06/24 11:45 Temperature Pulse Rate 58 L 73 Pulse Rate [Bilateral Brachial] Respiratory Rate 39 H 42 H Blood Pressure 102/57 Blood Pressure [Left Arm] O2 Sat by Pulse Oximetry Oxygen Delivery Method 04/06/24 11:52 04/06/24 12:08 04/06/24 12:00 Temperature 98.2 F Pulse Rate Pulse Rate [Bilateral Brachial] 56 L Respiratory Rate 20 18 Blood Pressure Blood Pressure [Left Arm] 96/47 O2 Sat by Pulse Oximetry 99 Oxygen Delivery Method Room Air Room Air 04/06/24 16:00 04/06/24 20:00 04/06/24 19:00 Temperature 98.3 F 97.8 F Pulse Rate Pulse Rate [Bilateral Brachial] 52 L 51 L Respiratory Rate 20 20 Blood Pressure Blood Pressure [Left Arm] 90/55 84/54 O2 Sat by Pulse Oximetry 100 100 Oxygen Delivery Method Room Air Room Air Room Air 04/07/24 00:00 04/07/24 04:00 04/07/24 08:00 Temperature 98.2 F 97.7 F 98.3 F Pulse Rate Pulse Rate [Bilateral Brachial] 60 62 57 L Respiratory Rate 22 20 20 Blood Pressure Blood Pressure [Left Arm] 75/62 95/51 91/53 O2 Sat by Pulse Oximetry 98 99 99 Oxygen Delivery Method Room Air Room Air Room Air 04/07/24 09:21 04/07/24 12:00 04/07/24 13:49 Temperature 97.8 F Pulse Rate 60 Pulse Rate [Bilateral Brachial] 52 L Respiratory Rate 20 18 Blood Pressure 117/58 Blood Pressure [Left Arm] 95/52 O2 Sat by Pulse Oximetry 100 100 Oxygen Delivery Method Room Air Room Air Room Air 04/07/24 15:02 04/07/24 15:07 04/07/24 15:17 Temperature 97.4 F L Pulse Rate 61 63 62 Pulse Rate [Bilateral Brachial] Respiratory Rate 18 18 17 Blood Pressure 106/52 107/59 111/56 Blood Pressure [Left Arm] O2 Sat by Pulse Oximetry 99 97 96 Oxygen Delivery Method Aerosol Face Tent Aerosol Face Tent Room Air 04/07/24 14:04 04/07/24 14:33 04/07/24 15:12 Temperature Pulse Rate 63 Pulse Rate [Bilateral Brachial] Respiratory Rate 16 18 18 Blood Pressure 96/52 Blood Pressure [Left Arm] O2 Sat by Pulse Oximetry 96 Oxygen Delivery Method Room Air 04/07/24 15:02 04/07/24 15:07 04/07/24 15:22 Temperature Pulse Rate 57 L Pulse Rate [Bilateral Brachial] Respiratory Rate 16 18 18 Blood Pressure 98/53 Blood Pressure [Left Arm] O2 Sat by Pulse Oximetry 96 Oxygen Delivery Method Room Air 04/07/24 15:27 04/07/24 15:32 04/07/24 15:45 Temperature 97.1 F L Pulse Rate 53 L 54 L Pulse Rate [Bilateral Brachial] 57 L Respiratory Rate 18 16 18 Blood Pressure 96/55 107/60 Blood Pressure [Left Arm] 105/55 O2 Sat by Pulse Oximetry 97 97 97 Oxygen Delivery Method Room Air Room Air 04/07/24 16:00 04/07/24 16:15 04/07/24 16:30 Temperature 98 F 98 F 98.2 F Pulse Rate Pulse Rate [Bilateral Brachial] 70 46 L 53 L Respiratory Rate 18 18 18 Blood Pressure Blood Pressure [Left Arm] 113/53 90/54 112/55 O2 Sat by Pulse Oximetry 98 97 98 Oxygen Delivery Method 04/07/24 16:45 04/07/24 16:15 04/07/24 16:30 Temperature 98.6 F 98.0 F 98.2 F Pulse Rate Pulse Rate [Bilateral Brachial] 48 L 46 L 48 L Respiratory Rate 18 18 18 Blood Pressure Blood Pressure [Left Arm] 100/53 90/54 112/55 O2 Sat by Pulse Oximetry 99 97 98 Oxygen Delivery Method Room Air Room Air 04/07/24 16:45 04/07/24 17:45 04/07/24 18:45 Temperature 98.6 F 98.4 F 98.6 F Pulse Rate Pulse Rate [Bilateral Brachial] 48 L 55 L 50 L Respiratory Rate 18 18 19 Blood Pressure Blood Pressure [Left Arm] 100/53 99/58 111/54 O2 Sat by Pulse Oximetry 98 98 100 Oxygen Delivery Method Room Air Room Air Room Air 04/07/24 19:45 04/07/24 19:00 04/07/24 20:45 Temperature 97.9 F 98.2 F Pulse Rate Pulse Rate [Bilateral Brachial] 43 L 55 L Respiratory Rate 20 18 Blood Pressure Blood Pressure [Left Arm] 103/56 106/55 O2 Sat by Pulse Oximetry 100 100 Oxygen Delivery Method Room Air Room Air Room Air 04/08/24 00:00 04/08/24 04:00 04/08/24 08:53 Temperature 98.6 F 98.5 F Pulse Rate Pulse Rate [Bilateral Brachial] 51 L 67 Respiratory Rate 18 18 Blood Pressure Blood Pressure [Left Arm] 100/61 101/54 O2 Sat by Pulse Oximetry 99 99 Oxygen Delivery Method Room Air Room Air Room Air 04/08/24 08:00 Temperature 98.2 F Pulse Rate Pulse Rate [Bilateral Brachial] 56 L Respiratory Rate 20 Blood Pressure Blood Pressure [Left Arm] 102/50 O2 Sat by Pulse Oximetry 100 Oxygen Delivery Method Room Air Labs: Laboratory Last Values WBC 7.6 X10^3/uL (3.6-10.0) 04/07/24 04:30 RBC 3.31 X10^6/uL (3.5-5.4) L 04/07/24 04:30 Hgb 9.9 g/dL (12.0-16.0) L D 04/07/24 04:30 Hct 30.4 % (36.0-47.0) L 04/07/24 04:30 MCV 91.8 fL (80.0-100.0) 04/07/24 04:30 MCH 29.8 pg (27.0-34.0) 04/07/24 04:30 MCHC 32.4 g/dL (33.0-35.0) L 04/07/24 04:30 RDW 14.4 % (11.6-16.5) 04/07/24 04:30 Plt Count 205 X10^3/uL (150.0-450.0) 04/07/24 04:30 MPV 9.8 fL (7.4-11.0) 04/07/24 04:30 Neut % (Auto) 58.0 % (42.0-75.0) 04/07/24 04:30 Lymph % (Auto) 30.6 % (21.0-51.0) 04/07/24 04:30 [place] % (Auto) 9.3 % (0.0-13.0) 04/07/24 04:30 Eos % (Auto) 1.3 % (0.9-2.9) 04/07/24 04:30 Baso % (Auto) 0.8 % (0.2-1.0) 04/07/24 04:30 Neut # (Auto) 4.4 x10^3/uL (2.2-4.8) 04/07/24 04:30 Lymph # (Auto) 2.3 X10^3/uL (1.3-2.9) 04/07/24 04:30 [place] # (Auto) 0.7 x10^3/uL (0.3-0.8) 04/07/24 04:30 Eos # (Auto) 0.1 x10^3/uL (0.0-0.2) 04/07/24 04:30 Baso # (Auto) 0.1 X10^3/uL (0.0-0.1) 04/07/24 04:30 Absolute Nucleated RBC 0.0 /100WBC 04/07/24 04:30 Sodium 140 mmol/L (136-145) 04/07/24 04:30 Corrected Sodium TNP 04/07/24 04:30 Potassium 4.1 mmol/L (3.5-5.1) 04/07/24 04:30 Chloride 107 mmol/L (98-107) 04/07/24 04:30 Carbon Dioxide 20.9 mmol/L (21-32) L 04/07/24 04:30 BUN 9 mg/dL (7-18) 04/07/24 04:30 Creatinine 0.56 mg/dL (0.55-1.02) 04/07/24 04:30 Est GFR (MDRD) Af Amer > 60 (>60) 04/07/24 04:30 Est GFR (MDRD) Non-Af > 60 (>60) 04/07/24 04:30 Glucose 58 mg/dL (65-99) L 04/07/24 04:30 Calcium 8.3 mg/dL (8.5-10.1) L 04/07/24 04:30 Corrected Calcium 9.0 mg/dL (8.5-10.1) 04/07/24 04:30 Magnesium 1.6 mg/dL (2.0-2.9) L 04/07/24 04:30 Total Bilirubin 0.70 mg/dL (0.2-1.0) 04/07/24 04:30 AST 12 Units/L (15-37) L 04/07/24 04:30 ALT 13 Units/L (12-78) 04/07/24 04:30 Alkaline Phosphatase 64 Units/L (46-116) 04/07/24 04:30 Total Protein 6.0 g/dL (6.4-8.2) L 04/07/24 04:30 Albumin 3.1 g/dL (3.4-5.0) L 04/07/24 04:30 Globulin 2.9 g/dL (2.5-4.5) 04/07/24 04:30 Albumin/Globulin Ratio 1.1 Ratio (1.1-2.1) 04/07/24 04:30 Amylase 35 Units/L (25-115) 04/06/24 07:53 Lipase 16 Units/L (16-77) 04/06/24 07:53 HCG, Qual Negative <10 mIU/mL 04/06/24 07:50 Specimen Type Clean catch urine 04/06/24 08:50 Urine Color Yellow (YELLOW) 04/06/24 08:50 Urine Appearance Slightly hazy (CLEAR) 04/06/24 08:50 Urine pH 6.0 (5.0 - 8.0) 04/06/24 08:50 Ur Specific [place] 1.025 (1.000-1.030) 04/06/24 08:50 Urine Protein 2+ (NEGATIVE) 04/06/24 08:50 Urine Glucose (UA) Negative (NEGATIVE) 04/06/24 08:50 Urine Ketones 4+ (NEGATIVE) 04/06/24 08:50 Urine Blood Negative (NEGATIVE) 04/06/24 08:50 Urine Nitrite Negative (NEGATIVE) 04/06/24 08:50 Urine Bilirubin Negative (NEGATIVE) 04/06/24 08:50 Urine Urobilinogen Normal (NORMAL) 04/06/24 08:50 Ur Leukocyte Esterase Negative (NEGATIVE) 04/06/24 08:50 Urine RBC 0-2 /HPF (0-3) 04/06/24 08:50 Urine WBC 3-5 /HPF (0-5) 04/06/24 08:50 Ur Squamous Epith Cells Moderate /HPF (NEGATIVE) 04/06/24 08:50 Urine Bacteria Trace /HPF (NEGATIVE) 04/06/24 08:50 Hyaline Casts Few /LPF (NEGATIVE) 04/06/24 08:50 Urine Mucus Few /HPF (NEGATIVE) 04/06/24 08:50 Ur Culture Indicated? No/not indicated 04/06/24 08:50 Levetiracetam < 2 ug/mL (10-40) L 04/06/24 07:50 Reason For Visit: cholithiasis, acute abdominal pain, Discharge Date Discharge Date: 04/08/24 Discharge Diagnosis All Active Problems (Updated 04/06/24 @ 11:53 by Kelli Fischer) Muscle spasm (Acute) Pyelonephritis (Acute) Weak (Acute) Seizure disorder (Acute) Abdominal pain (Acute) Cholelithiasis (Acute) Nausea & vomiting (Acute) Plan of Treatment: Continue with present treatment and follow up plan. Pt is to keep follow up appointment as instructed and take medications as ordered. Discharge Medications Discharge Medications: phenytoin [From Dilantin] Allergy (Verified 04/06/24 07:23) New Prescriptions levetiracetam 500 mg tablet (Keppra) 500 mg PO BID #60 tabs 04/06/24 [Rx] Discharge Disposition Assessment: see hospital course Discharge Plan Discharge Plan Hospital Course: 38 year old female seen in the emergency room with nausea and vomiting and di scovered to have symptomatic cholelithiasis . Patient underwent uncomplicated laparoscopic cystectomy yesterday .nausea and vomiting has resolved however appetite has not been great .She will be discharged today on usual home medications plus Percocet, 5 milligram tablets, 1 every 6 hours PRN pain. She will follow up with me in 1 week. I encourage ambulation and for her not to smoke cigarettes. Patient Disposition: HOME, SELF-CARE Condition: Stable Health Concerns: Post Hospitalization: new medications and changes needed to prevent readmission or further decline. Pt educated and given instructions on all concerns. Care Plan Goals: Problem: Pain/Alteration in Comfort Goal: Improve/ Resolve Pain; Achieve Pain Tolerance Instructions: Take pain medications as prescribed. Contact your primary care provider if your pain is unrelieved or worsens. Follow up with primary care provider as directed. Plan of Treatment: Continue with present treatment and follow up plan. Pt is to keep follow up appointment as instructed and take medications as ordered. Assessment: see hospital course Prescription drug monitoring program results: PDMP reviewed and no concerns identified Prescriptions: New levetiracetam [Keppra] 500 mg tablet 500 mg PO BID Qty: 60 0RF oxycodone-acetaminophen [Percocet] 5-325 mg tablet 1 tab PO Q6H MDD 4 PRNQty: 20 0RF Orders to Discharge Patient Discharge Orders: Discharge (Routine); Ordered 04/08/24 Ordered By: Homero Galvan Follow ups/Referrals Follow ups/Referrals: Homero Galvan [STAFF PHYSICIAN] - 04/27/24 3:30 pm Instructions Instructions: Laparoscopic Cholecystectomy, Care After Stand Alone Forms: Excuse From Work or School, Post Hospital Follow Up Care
--- NOTE | 2024-04-10 16:26 | DR.OPNOTE ---
OP NOTE Pre-Op Diagnosis: symptomatic cholelithiasis Post-Op Diagnosis: same Procedure Date Date Of Procedure: 04/07/24 Procedure: PROCEDURE: LAPAROSCOPIC CHOLECYSTECTOMY NARRARTIVE : The patient was taken to the operative suite and placed in the Supine position. General endotracheal anesthesia was induced. The entire abdomen prepped and draped in sterile fashion. Patient was placed in reverse Trendelenburg position and rolled to the left. Time out for the procedure obtained . Curvilinear 3cm incision made below the umbilicus in the midline and dissection carried down to the midline fascia. Medline facscia had holding sutures of 0 vicryl placed on either side of the midline. The fascia opened vertically with a 15 knife blade. The peritoneum was opened with Metzenbaum scissors and the abdominal cavity entered. Alondra cannula placed through this opening and held in position with the holding sutures. The abdomen insufflated to 15 mm of mercury with carbon dioxide. Under direct vision two 5 mm trocars placed along the right costal margin. A 5 mm trocar placed in the epigastrium. The gallbladder was identified and was consistent with symptomatic cholelithiasis. The gallbladder was grapsed at the fundus and infundibulum and dissection carried out in Calot's triangle identifying the cystic duct and cystic artery , i.e. the critical view of safety . Both were clipped proximally and distally and divided. The pieritoneum of the gallbladder incised with electrocautery to remove the gallbladder from the liver bed. The gallbladder removed through the infra umbilical port. The Alondra cannula was replaced. Abdomen irrigated and suctioned free. Hemostasis obtained with electrocautery where necessary. Surgicel placed in the liver bed where the gallbladder has been removed. All trocars removed. The fascia of the initial incision closed with interrupted 0 Vicryl suture . All laparoscopic incisions then closed with 3-0 Vicryl sutures in the subcutaneous fascia in interrupted fashion. The skin closed with strei strips Each incision was injected with 0.5% marcaine. The patient was extubated and taken to PACU in good condition . Type of Anesthesia: General Anesthetic w/ETT Findings: as above Specimen/Pathology: gallbladder submitted for pathology Type of Fluids Used:: Lactated Ringers EBL: minimal Drains/Tubes Placed: None Complications:: none Needle/Sponge Count:: correct Disposition/Condition: Pt. tolerated procedure without difficulty. Taken to [facility] in stable condition.
== END 2024-04-08 09:30 | disposition home or self-care (01) ==
LOC: ER 07:01 → MED/SURG 07:01
PROVIDERS: ADMIT Surgery; ATTEND Surgery
DX: R10.84 Generalized abdominal pain; E83.42 Hypomagnesemia; K80.80 Other cholelithiasis without obstruction; R11.2 Nausea with vomiting, unspecified; Z59.86 Financial insecurity; Z86.69 Personal history of other diseases of the nervous system and sense organs; R00.1 Bradycardia, unspecified; R53.1 Weakness; E87.6 Hypokalemia